=== PATIENT | female | born 1960 | race Caucasian/White ===

== ENCOUNTER → 2018-08-10 | Outpatient (CLI) | payer BC | LOC: MC.RAD 11:16 | DX: Z12.31 Encounter for screening mammogram for malignant neoplasm of breast (principal) ==

== ENCOUNTER → 2020-09-03 | Outpatient (CLI) | payer BC ==
[~2020-09-03] MED LIST: CENTRUM SILVER1 TAB PO; NATURAL ST. JO300 MG PO; PROAIR HFA0.09 MG/AC IH
== END ==
LOC: COL.RAD 08-28 08:30
DX: Q75.9 Congenital malformation of skull and face bones, unspecified (principal)

== ENCOUNTER 2020-09-05 13:03 | Outpatient (CLI) | payer BC ==
[~2020-09-05] VITALS: Ht 170.2 cm; Wt 72.4 kg
[2020-09-05] MEDS ORDERED: NATURAL ST. JO300 MG PO (13:17)
[2020-09-05] MEDS ORDERED: PROAIR HFA0.09 MG/AC IH (13:17)
[2020-09-05] MEDS ORDERED: CENTRUM SILVER1 TAB PO (13:18)
[2020-09-05 13:30] VITALS: BP 121/75; PULSE 64; TEMP 98.6
--- NOTE | 2020-09-05 14:21 | NUR ---
No reaction or complaints. INT discontinued intact and pt released to own care.
== END 2020-09-05 14:22 | disposition home or self-care (01) ==
LOC: EUO 13:03
DX: M81.0 Age-related osteoporosis without current pathological fracture (principal); Z79.899 Other long term (current) drug therapy
CPT/HCPCS: J3489

== ENCOUNTER → 2020-09-11 | Outpatient (CLI) | payer BC | LOC: MC.RAD 10:41 | DX: Z12.31 Encounter for screening mammogram for malignant neoplasm of breast (principal) ==

== ENCOUNTER 2021-09-09 15:04 | Outpatient (CLI) | payer BC ==
[~2021-09-09] VITALS: Ht 170.2 cm; Wt 75.0 kg
[2021-09-09] MEDS ORDERED: ELDERBERRY PO (15:28)
[2021-09-09] MEDS ORDERED: GLUCOSAMINE & C1 CA2 PO (15:28)
[2021-09-09 15:29] VITALS: BP 133/83; PULSE 64; TEMP 98.1
[2021-09-09] MEDS ORDERED: PROBIOTIC BLEN1 EACH PO (15:29)
== END 2021-09-09 15:55 ==
LOC: EUO 15:04
DX: M81.0 Age-related osteoporosis without current pathological fracture (principal)
CPT/HCPCS: J3489

== ENCOUNTER → 2021-09-17 | Outpatient (CLI) | payer BC ==
[~2021-09-17] MED LIST changes: +ELDERBERRY PO; +GLUCOSAMINE & C1 CA2 PO; +PROBIOTIC BLEN1 EACH PO
== END ==
LOC: MC.RAD 14:00
DX: Z12.31 Encounter for screening mammogram for malignant neoplasm of breast (principal)

== ENCOUNTER → 2024-03-28 | Outpatient (CLI) | payer BC | LOC: MC.RAD 13:16 | DX: Z12.31 Encounter for screening mammogram for malignant neoplasm of breast (principal) ==